=== PATIENT | male | born 1955 | race Caucasian/White ===

== ENCOUNTER 2016-10-31 09:56 | Emergency (ER) | payer OTHER ==
[~2016-10-31] VITALS: Ht 172.7 cm; Wt 68.9 kg
[2016-10-31 09:58] VITALS: TEMP 36.5; Ht 172.7 cm; Wt 68.9 kg
[2016-10-31] MEDS ORDERED: OXYCODONE HCL IR 5 MG TAB (IMMEDIATE RELEASE) PO STA (10:30)
[2016-10-31] MEDS ORDERED: ATOR-26 PO (10:43)
[2016-10-31] MEDS ORDERED: METO25TA56 PO (10:43)
[2016-10-31] MEDS ORDERED: ISOS30TA3 PO (10:43)
[2016-10-31] MEDS ORDERED: CLOP1TAB15 PO (10:43)
[2016-10-31] MEDS ORDERED: LISI-789 PO (10:43)
--- NOTE | 2016-10-31 11:14 | DIAGNOSTIC IMAGING REPORT ---
LEFT ELBOW MIN 3 VIEWS ROUTINE CLINICAL HISTORY: Left elbow pain status post trauma COMPARISON: None. DISCUSSION: There is minimal prominence of the anterior humeral fat pad. No acute fractures or dislocations are visualized. There is a minor deformity of the radial head which is felt to be old. IMPRESSION: No acute fractures or dislocations identified. Electronically signed by: Vito Agarwal M.D. 10/31/2016 11:12 AM Dictated Date/Time: 10/31/2016 11:11 AM
--- NOTE | 2016-10-31 11:15 | DIAGNOSTIC IMAGING REPORT ---
AP pelvis and right hip 3 VIEWS CLINICAL HISTORY: Hip and pelvic pain status post trauma COMPARISON STUDY: No previous studies for comparison. FINDINGS: Degenerative changes are present within the lower lumbar spine. There are postsurgical changes of a total left hip arthroplasty. No acute fractures or dislocations are visualized. IMPRESSION: No acute fractures or dislocations identified. Electronically signed by: Vito Agarwal M.D. 10/31/2016 11:13 AM Dictated Date/Time: 10/31/2016 11:12 AM
--- NOTE | 2016-10-31 11:15 | EMERGENCY ROOM VISIT NOTE ---
ED Visit Note First contact with patient: 10:15 I have personally evaluated and examined this patient. I agree with assessment and plan of Kailee Cifuentes PA-C. Patient with large right-sided hematoma and gluteus medius. Symptomatic treatment and follow-up with primary care physicians. Educated the patient must continue to take his antiplatelet medications for his recent heart attack.
[2016-10-31] MEDS ORDERED: OXYC1TAB3 PO (11:35)
--- NOTE | 2016-10-31 11:35 | EMERGENCY ROOM VISIT NOTE ---
ED Visit Note First contact with patient: 10:15 CHIEF COMPLAINT: Fall last evening, right hip and right elbow injury HISTORY OF PRESENT ILLNESS: Patient is a 61-year-old white male who presents to the emergency department for evaluation of right hip pain, swelling and bruising and right elbow pain after a mechanical fall last evening. Patient reports that he fell roughly 4 feet off of a ledge, landing on a concrete pad on his right side primarily his right hip and also striking his right elbow. He did not strike his head or lose consciousness. After a few moments he was able to get up. He was able to bear weight on the right leg but it was painful. He also noted pain, swelling and bruising over the tip of the right elbow. He applied ice to the area and took Aleve and Tylenol overnight. He states that the swelling and the bruising has gone down on the elbow, but his hip has markedly worsened. He states that the bruising significantly increased overnight. He describes a throbbing pain in the lateral aspect of his right hip that does not radiate. He can only lay on his left side and has had difficulty getting comfortable. He had an VT recently status post angioplasty and stenting 2 and is on aspirin and Plavix. He denies any other blood thinners. He denies any chest, back, rib or abdominal pain. REVIEW OF SYSTEMS: Review of systems as per HPI. All other systems reviewed were negative. 10 systems reviewed. PMH: Electronic medical records are reviewed and summarized as above/below. See Problem List. SOCIAL HISTORY: Patient lives at home in [place]. He is here visiting family. He is a smoker. PHYSICAL EXAM: Vital Signs: Reviewed Nurse's notes. GENERAL: Patient is a well-appearing 61-year-old white male who is awake and alert and laying on his left side on the gurney in mild distress due to his hip pain. Neck: The neck is supple and there is no pain to palpation over the posterior cervical spine and no obvious step-offs or deformities. There is no JVD or tracheal deviation. Chest: There are no signs of deformities, contusions or abrasions to the chest wall. There is no obvious crepitus or paradoxical chest rise. Heart: Regular rate, and regular rhythm. Lungs: Breath sounds equal and clear to auscultation without wheezes, rales, or rhonchi heard. Abdomen: Soft, completely nontender, nondistended, with good bowel sounds. There is no sign of trauma such as contusions, abrasions or penetrations. There are no palpable pulsatile masses or hepatosplenomegaly. There is no guarding, rigidity, or rebound noted. Extremities: Examination of the right hip show a large hematoma noted over the lateral aspect of the hip. The area is tender to palpation. There is no obvious fracture crepitus. Leg lengths appear symmetrical. He does not have any discomfort with logroll her straight leg raise testing. No pain over the distal portion of the femur. The remainder of the right lower extremity is normal and neurovascularly intact. Examination of the right elbow show very slight soft tissue swelling. He is tender over the olecranon process. No obvious olecranon bursal swelling is noted. Elbow range of motion is full including flexion, extension, pronation and supination. Right upper extremity is neurovascularly intact. Neuro: The patient is awake and alert and easily able to follow commands. Muscle strength is 5 out of 5 in all 4 extremities. Otherwise, neuro exam is unremarkable. Back: The entire thoracic, lumbar, and sacral spine were palpated. No discomfort over the thoracic spine and lumbar spine. There are no obvious step- offs or deformities noted. There are no obvious signs of trauma such as contusions abrasions penetrations noted to the back. EMERGENCY DEPARTMENT COURSE: Patient was medicated with oxycodone 10 mg orally. Right hip/AP pelvis and right elbow x-rays were obtained and were negative for acute fracture or bony abdomen mildly. Conservative care measures were discussed. Patient was issued crutches to assist with ambulation. He was encouraged to apply ice to the areas of bruising and pain for discomfort. He was given a small prescription for oxycodone to use for pain. The patient suffered a mechanical fall, landing on his right hip and elbow. Differential diagnoses include right hip/right pelvic fractures, hip dislocation , femur fracture, contusion/hematoma, elbow fracture, among others. Patient was reviewed in the [facility] Prescription Drug Monitoring Program, and there was no record noted. [place]. LEFT ELBOW MIN 3 VIEWS ROUTINE CLINICAL HISTORY: Left elbow pain status post trauma COMPARISON: None. DISCUSSION: There is minimal prominence of the anterior humeral fat pad. No acute fractures or dislocations are visualized. There is a minor deformity of the radial head which is felt to be old. IMPRESSION: No acute fractures or dislocations identified. AP pelvis and right hip 3 VIEWS CLINICAL HISTORY: Hip and pelvic pain status post trauma COMPARISON STUDY: No previous studies for comparison. FINDINGS: Degenerative changes are present within the lower lumbar spine. There are postsurgical changes of a total left hip arthroplasty. No acute fractures or dislocations are visualized. IMPRESSION: No acute fractures or dislocations identified. Problem List Medical Problems: (1) Coronary artery disease Status: Chronic (2) Dyslipidemia Status: Chronic (3) History of VT (myocardial infarction) Permanent Comment: 09/27/2016 Status: Chronic (4) Hypertension Status: Chronic (5) S/P PTCA (percutaneous transluminal coronary angioplasty) Permanent Comment: Stenting 2 Status: Chronic Surgical Problems: (1) H/O cervical spinal arthrodesis Status: Resolved (2) H/O total hip arthroplasty Status: Resolved Current/Historical Medications Scheduled Atorvastatin (Lipitor), 80 MG PO DAILY Clopidogrel (Plavix), 75 MG PO DAILY Isosorbide Mononitrate Ext Rel (Imdur Ext Rel), 15 MG PO BID Lisinopril (Zestril), 2.5 MG PO DAILY Metoprolol Tartrate (Lopressor) (Lopressor), 25 MG PO BID Scheduled PRN Oxycodone Immediate Rel Tab (Roxicodone Ir), 1-2 TAB PO Q4H PRN for Severe Pain Allergies Coded Allergies: No Known Allergies (Unverified , 10/31/16) Vital Signs Date Time Temp Pulse Resp B/P Pulse Ox O2 Delivery O2 Flow Rate FiO2 10/31/16 11:45 64 16 172/94 100 Room Air 10/31/16 09:58 36.5 62 20 176/83 98 Room Air Medications Administered Medications (Trade) Dose Ordered Sig/Johnnie Route Start Time Stop Time Status Last Admin Dose Admin Oxycodone HCl (Roxicodone Immediate Rel Tab) 10 mg NOW STAT PO 10/31/16 10:30 10/31/16 10:32 DC 10/31/16 10:44 10 MG Departure Information Impression Primary Impression: Traumatic hematoma of right hip Additional Impressions: Contusion of right elbow Fall Prescriptions Oxycodone Immediate Rel Tab (ROXICODONE IR) 5 Mg Tab 1-2 TAB PO Q4H Y for Severe Pain, #20 TAB For Initial Treatment Prov: Smita Cifuentes PA 10/31/16 Referrals No Doctor, Assigned (PCP) Patient Instructions My [facility] Additional Instructions DO NOT drive, drink alcohol, operate machinery, or perform dangerous activities today. You were given medications in the ER that can affect your ability to safely function or operate a vehicle. Oxycodone (OxyIR) 5mg: Take 1-2 pills every four hours for breakthrough pain. Avoid alcohol, operating machinery or dangerous equipment, working on ladders or roofs, DRIVING, or situations where being under the influence may be dangerous. It is recommended to use an [id number] stool softener such as Colace, 100mg twice daily while taking this medication to avoid constipation. Acetaminophen(Tylenol) may be used for fever or pain. Use 1000mg every six hours as needed. Avoid using more than 3000mg in a 24 hour period. This medication can be taken if you need to drive, work, or perform activities which may be dangerous when taking narcotic pain medication. Ice compresses for 20 minutes at a time four times daily for 2-3 days. Use the crutches as instructed. Rest and elevate your injuries. Continue current medications. Return to the ER immediately for any numbness, tingling, severe pain, extreme swelling in the extremity or as needed. Follow-up with your primary care provider or orthopedic surgeon when you return home for further care and evaluation of your injuries. Problem Qualifiers Primary Impression: Traumatic hematoma of right hip Encounter type: initial encounter Qualified Codes: S70.01XA - Contusion of right hip, initial encounter Additional Impressions: Contusion of right elbow Encounter type: initial encounter Qualified Codes: S50.01XA - Contusion of right elbow, initial encounter Fall Encounter type: initial encounter Qualified Codes: W19.XXXA - Unspecified fall, initial encounter
[2016-10-31 11:45] VITALS: BP 172/94; PULSE 64; O2SAT 100
== END 2016-10-31 11:56 | disposition home or self-care (01) ==
LOC: C.EDB 10:00
DX: S70.01XA Contusion of right hip, initial encounter (principal); S50.01XA Contusion of right elbow, initial encounter; W17.89XA Other fall from one level to another, initial encounter; I25.2 Old myocardial infarction; Z95.5 Presence of coronary angioplasty implant and graft; Z79.82 Long term (current) use of aspirin; Z79.01 Long term (current) use of anticoagulants; F17.210 Nicotine dependence, cigarettes, uncomplicated; I25.10 Atherosclerotic heart disease of native coronary artery without angina pectoris; E78.5 Hyperlipidemia, unspecified; I10 Essential (primary) hypertension; Z96.649 Presence of unspecified artificial hip joint; Z79.899 Other long term (current) drug therapy